=== PATIENT | male | born 1995 | race Caucasian/White ===

== ENCOUNTER 2018-12-10 06:40 | Emergency (ER) | payer OTHER, SELFPAY ==
[2018-12-10 06:48] VITALS: BP 119/82; PULSE 62; RESP 17; TEMP 36.6; O2SAT 100
--- NOTE | 2018-12-10 06:49 | ED.GENADUL_ITS ---
Discharge Plan Disposition Patient Disposition: HOME Condition: Good Discharge Details Chief Complaint: Laceration Clinical Impression: Finger laceration Primary Care Provider: Spenser Negron ED Provider: Danie Brito Meds and New Rx's Prescriptions: Continued doxycycline monohydrate 100 MG capsule 1 cap PO DAILY Qty: 90 RF: 3 erythromycin-benzoyl peroxide [Benzamycin] 3-5 % gel See Rx Instructions Topical BID Qty: 46.6 RF: 0 Discharge Instructions Additional Instructions: Keep the wound covered and dry. Do not scrub the area. Watch for signs of infection. Return if any increasing redness, pain, swelling, drainage. Referrals: [facility] [Provider Group] Medical Decision Making Patient tetanus is up-to-date. Wound is very superficial in skin crease of the PIP joint. Its on the radial aspect. It is amendable to glow as it is so superficial. Wound cleaned. Bleeding controlled. Adhesive applied with good results. Patient to return if any evidence of infection. HPI General Mode of arrival: ambulatory . Date/Time Provider Initiated Documentation: 12/10/18 06:49 . Limitations to Documentation: no limitations . Information obtained by: patient and RN notes reviewed . HPI Narrative: Patient presents with laceration to his left index finger. Patient was chiseling a piece of wood at work. Chisel slipped and caught his finger. Sustained a laceration to the index finger. Bleeding is controlled. Otherwise no complaints. Related Data Home Medications Medication Instructions Recorded Confirmed doxycycline monohydrate 1 cap PO DAILY #90 cap 04/20/17 erythromycin-benzoyl peroxide 3 See Rx Instructions TOPICAL BID 09/16/18 %-5 % topical gel #46.6 gm Previous Rx's Medication Instructions Recorded doxycycline monohydrate 1 cap PO DAILY #90 cap 04/20/17 erythromycin-benzoyl peroxide 3 See Rx Instructions TOPICAL BID 09/16/18 %-5 % topical gel #46.6 gm Allergies Allergy/AdvReac Type Severity Reaction Status Date / Time amoxicillin Allergy Unverified 11/15/17 09:46 Penicillins Allergy Unverified 11/15/17 09:46 Review of Systems Constitutional Denies weakness Musculoskeletal Denies numbness and Denies tingling Integumentary/Breasts Reports wounds Neurologic Denies numbness, Denies tingling and Denies weakness [facility] Medical History Acne 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 Sister Mental disorder DEPRESSION/ANXIETY Asthma GRANDPARENT Heart disease Mother No problems noted. Other AAA (abdominal aortic aneurysm) Social History Smoking/Tobacco Use Status: Current every day Alcohol Intake: current Alcohol Intake frequency: a few times a week Substance use type: marijuana Exam Const General: cooperative, comfortable and no acute distress Orientation: alert and oriented x3 Skin Trauma: laceration (left index finger superficial in nature at PIP 0.5 cm) Extrem Other: Left hand with a superficial laceration on the radial aspect of the index finger at the level of PIP. He has normal range of motion. No active bleeding. Normal sensation and cap refill distally. No evidence of tendon injury. Good strength. Procedures Laceration Laceration 1: Site: hand Side (If applicable): left Size (cm): 0.5 Description: linear Depth: simple, single layer Pre-repair: irrigated extensively Skin layer closed with: other (glue)
--- NOTE | 2018-12-10 06:51 | NUR.NOTE ---
Nursing Note: pt resting in stretcher with friend at bedside. no signs of distress. slow and even respirations noted. reports that he is up to date on tetnus.
== END 2018-12-10 07:16 | disposition home or self-care (01) ==
LOC: ER 07:15
PROVIDERS: Emergency Provider Emergency Medicine; PCP Family Medicine
DX: S61.211A Laceration without foreign body of left index finger without damage to nail, initial encounter (principal); W27.0XXA Contact with workbench tool, initial encounter
CPT/HCPCS: 12001

== ENCOUNTER 2020-02-17 03:54 | Outpatient (CLI) | payer BC, SELFPAY ==
[2020-02-20 20:57] LABS: Patient Race White; SARS-CoV-2 RNA Undetected (Undetected); SARS-CoV-2 Specimen Source Nasal
== END 2020-02-17 04:14 ==
PROVIDERS: PCP Family Medicine; Visit Provider Family Medicine
DX: Z20.828 Contact with and (suspected) exposure to other viral communicable diseases (principal)
CPT/HCPCS: U0003

== ENCOUNTER 2025-01-26 21:41 | Emergency (ER) | payer OTHER, SELFPAY ==
[2025-01-26 21:44] VITALS: BP 120/82; PULSE 71; RESP 18; TEMP 36.6; O2SAT 98
--- NOTE | 2025-01-26 21:59 | W.ED.GENAD ---
Discharge Plan Disposition Patient Disposition: Home Condition: Stable Discharge Details Clinical Impression: Laceration of face Primary Care Provider: None,None ED Provider: Michelle Mehta Home Meds and New Rx's Prescriptions: No Action No Known Home Meds Discharge Instructions Instructions: Laceration Repair With Glue ED Additional Instructions: You were seen in the emergency department today for evaluation of a facial laceration. In our department a full physical examination performed, your laceration was cleaned and was repaired using glue and Steri-Strips. Your tetanus booster was given to you, this will be good for the next 10 years unless he sustained another laceration, in which case that should be boosted in 5. The Steri-Strips and glue will fall off on their own in a few days. When they do, you should use an [id number] antibiotic ointment and keep the area covered with a dressing until it is healed. You can use ice, Tylenol, and ibuprofen as needed for pain and swelling. Please follow-up with your primary care provider in the next few days to discuss this visit and any symptoms that change, worsen, or persist. Thank you for allowing us to be part of your care. HPI General Mode of arrival: ambulatory. Date/Time Provider Initiated Documentation: 01/26/25 21:45. Limitations to Documentation: no limitations. Information obtained by: patient, family and old records reviewed. HPI Narrative: This is a 29-year-old male patient, previously healthy presenting for evaluation of facial laceration. The patient was using a wrench to fix something in his home, and the wrench came free and came backwards striking his forehead. This is located right between his eyes, resulted in a laceration, bleeding was controlled with direct pressure. The patient did not injure any other part of his body and was in his normal state of health prior to this event. The patient's last tetanus shot was in 2006. He has not taken any medications for management of pain. Related Data Home Medications ?Medication ?Instructions ?Recorded ?Confirmed Unknown [No Known Home Meds] 01/26/25 01/26/25 Allergies Allergy/AdvReac Type Severity Reaction Status Date / Time amoxicillin Allergy rash Unverified 01/26/25 21:45 Penicillins Allergy rash Unverified 01/26/25 21:45 General Stated Complaint: Laceration NYDIA: 4 Exam Narrative Exam Narrative: Gen: Awake and alert, in no apparent distress HEENT: Non-icteric sclera, PERRL, EOMs are full. The patient has a 1 cm laceration to the area just between the eyebrows, hemostatic and very well-approximated. Very superficial with no involvement of the deep structures. Small swelling underlying the area. Neck: Supple Lungs: No apparent respiratory distress, normal respiratory effort. CV: Appears well perfused Abdomen: Non-distended MSK: Moves 4 extremities without apparent limitation in ROM Skin: Visualized skin without rashes, cyanosis. Neuro: Normal Gait, no obvious focal deficits or facial asymmetry. Speaks in full, clear sentences. Psych: Appropriate for situation. Course Vital Signs Vital signs: Vital Signs Temperature 36.6 C 01/26/25 21:44 Pulse 71 01/26/25 21:44 Respiratory Rate 18 01/26/25 21:44 Blood Pressure 120/82 01/26/25 21:44 Pulse Oximetry 98 01/26/25 21:44 Temperature 36.6 C 01/26/25 21:44 Pulse 71 01/26/25 21:44 Respiratory Rate 18 01/26/25 21:44 Blood Pressure 120/82 01/26/25 21:44 Pulse Oximetry 98 01/26/25 21:44 Pain Level 0 01/26/25 21:44 Procedure Laceration Laceration 1: Date of Procedure: 01/26/25 Time of procedure: 22:00 Provider that performed the procedure: Michelle Mehta Patient Consented: Verbally Site: face Description: linear Depth: simple, single layer Pre-repair:: wound explored, irrigated extensively and deep structures intact Skin layer closed with: other (glue) Complications: None Procedure Description/Note: I evaluated the laceration, which is very superficial and well-approximated, hemostatic. It was thoroughly cleansed with antiseptic soap, and repaired using skin glue and Steri-Strips. The patient tolerated the procedure well without any immediate adverse events, and excellent cosmesis and edge approximation was achieved. Medical Decision Making This is a 29-year-old male patient presenting for evaluation of laceration. Differential includes but is not limited to laceration, contusion, hematoma. Low concern for intracranial hemorrhage given the mechanism, no evidence for skull fracture or facial bone fracture. The tetanus was boosted, and the wound repaired with glue. The patient tolerated this procedure well and good edge approximation was obtained as noted above. I counseled the patient on conservative management with Tylenol and ibuprofen as well as ice. At this time, the patient has had a full medical evaluation and is safe for discharge to home. They are hemodynamically stable, ambulatory, and tolerating PO. They are understanding of the follow-up plan and return precautions. They left our facility without incident. 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 Sister Mental disorder DEPRESSION/ANXIETY Asthma GRANDPARENT Heart disease Mother No problems noted. Other AAA (abdominal aortic aneurysm) Social History Smoking/Tobacco Use Status: Current every day Smoking risk assessment performed?: Yes Alcohol Intake: current Alcohol Intake frequency: a few times a week Drug use: Never Substance use type: marijuana Do you feel safe at home: Yes Do you feel safe in your relationship?: Yes PAWSS Have you Been Recently Intoxicated or Drunk Within the Last 30 days?: Yes Have you Ever Experienced Previous Episodes of Alcohol Withdrawal?: No Have you ever Experienced Withdrawal Seizures?: No Have you ever Experienced Delirium Tremens(DT)s?: No Have you ever undergone Alcohol Rehabilitation Treatment (i.e, inpt ot outpatient treatment programs)?: No Have you ever Experienced Blackouts?: No Have you ever Combined Alcohol with other Downers within the last 90 days?: No Have you ever Combined Alcohol with any other Substance of Abuse during the last 90 days?: No Positive Blood Alcohol level on Presentation? [PCS.BAL]: No Evidence of Increased Autonomic Activity (i.e. HR>120, tremor, sweating, agitation, nausea)?: No Result: 1
[2025-01-26] MEDS: Diph,Pertuss(Acell),Tet Vac/Pf 0.5 ML SYR IM (22:02)
== END 2025-01-26 22:06 | disposition home or self-care (01) ==
LOC: ER 22:27
PROVIDERS: Emergency Provider Emergency Medicine
DX: S01.81XA Laceration without foreign body of other part of head, initial encounter (principal); Z23 Encounter for immunization; W22.8XXA Striking against or struck by other objects, initial encounter; Y93.E9 Activity, other interior property and clothing maintenance; Y92.018 Other place in single-family (private) house as the place of occurrence of the external cause; F17.200 Nicotine dependence, unspecified, uncomplicated
CPT/HCPCS: 12011; 90471; 90715; 99283